=== PATIENT | male | born 1960 | race Caucasian/White ===

== ENCOUNTER 2020-12-10 20:29 | Emergency (ER) | payer SELFPAY ==
[~2020-12-10] VITALS: Ht 172.7 cm; Wt 72.0 kg
[2020-12-10] MEDS ORDERED: SODIUM CHLORIDE FLUSH 10ML SYR IVF ONE (21:30)
[2020-12-10] MEDS ORDERED: SODIUM CHLORIDE 0.9% 1,000 ML IV ONE (21:30)
[2020-12-10 21:39] LABS: BASOPHILS % (AUTO) 0 % (0-1); EOSINOPHILS % (AUTO) 0 % (1-7); LYMPHOCYTES % (AUTO) 6 % (22-44); MEAN CORPUSCULAR HEMOGLOBIN 30.9 pg (27.5-34.5); MEAN CORPUSCULAR HGB CONC 34.5 g/dL (33.2-36.2); MEAN PLATELET VOLUME 9.5 fL (7.4-10.4); MONOCYTES % (AUTO) 5 % (2-9); NEUTROPHILS % (AUTO) 89 % (42-75); PLATELET COUNT 164 x10^3/uL (130-400); RED BLOOD COUNT 5.71 x10^6/uL (4.38-5.82)
[2020-12-10 21:41] LABS: MD NO
[2020-12-10 21:46] LABS: ALANINE AMINOTRANSFERASE 52 U/L (12-78); ALBUMIN 2.5 g/dL (3.4-5.0); ANION GAP 8 mmol/L (5-15); CALCIUM 9.2 mg/dL (8.5-10.1); CHLORIDE 111 mmol/L (98-107)
[2020-12-10] MEDS ORDERED: DEXAMETHASONE 4 MG/ML, 1ML ONE (21:47)
[2020-12-10] MEDS ORDERED: DEXAMETHASONE 4 MG/ML, 1ML IVPush ONE (22:00)
[2020-12-10] MEDS ORDERED: LEVETIRACETAM 1,000 MG in SODIUM CHLORIDE 0.9% 100 ML IV ONE (22:00)
--- NOTE | 2020-12-10 22:00 | NUR ---
THROUGHPUT RN: TRANSFER PROCESS TO [facility]. AWAITING ACCEPTING MD.
[2020-12-10 22:01] LABS: ALKALINE PHOSPHATASE 96 U/L (45-117); BILIRUBIN,TOTAL 1.3 mg/dL (0.2-1.0); CREATINE KINASE, TOTAL 3965 U/L (39-308); CREATININE 0.64 mg/dL (0.7-1.3); TOTAL PROTEIN 6.3 g/dL (6.4-8.2)
--- NOTE | 2020-12-10 22:32 | NUR ---
Pt A&O x 3, calm and cooperative in room. VS. Pt medicated per order. Will continue to monitor. Working on tx to [facility].
[2020-12-10 22:53] VITALS: BP 113/64
--- NOTE | 2020-12-11 00:30 | NUR ---
Report to Kelsy RALPH at [facility]. Pt A&O x4. Pt with stable VS and ready for transport.
== END 2020-12-11 00:58 | disposition home or self-care (01) ==
LOC: ED 21:42
DX: R53.1 Weakness (principal); M62.82 Rhabdomyolysis; K02.9 Dental caries, unspecified; M25.511 Pain in right shoulder; M25.551 Pain in right hip; R62.7 Adult failure to thrive; Z68.24 Body mass index [BMI] 24.0-24.9, adult; J44.9 Chronic obstructive pulmonary disease, unspecified
CPT/HCPCS: 36415; 73030; 80053; 82550; 85025; 96361; 96365; 96375; 99284; J1100; J1953; J7030